=== PATIENT | female | born 1975 | race Caucasian/White ===

== ENCOUNTER 2023-10-22 09:55 | Day surgery (SDC) | payer MEDICAID ==
[~2023-10-22] VITALS: Ht 152.4 cm; Wt 47.6 kg
[2023-10-22] MEDS ORDERED: fentaNYL citrate 0.05 MG/ML VIAL ONE (14:47)
[2023-10-22] MEDS ORDERED: LIDOCAINE 2% 100 MG/5 ML UJET TP ONE (14:47)
[2023-10-22] MEDS: fentaNYL citrate 0.05 MG/ML VIAL IVP SCH (15:06)
== END 2023-10-22 16:09 | disposition home or self-care (01) ==
LOC: MDS 09:55 → MMU 09:55 → MDS 16:09
PROVIDERS: ATTEND Internal Medicine Gastroenterology
DX: R10.30 Lower abdominal pain, unspecified (principal); Z79.899 Other long term (current) drug therapy; Z98.890 Other specified postprocedural states
CPT/HCPCS: 45378; J3010